=== PATIENT | female | born 1925 | race Caucasian/White ===

== ENCOUNTER → 2016-04-02 | Outpatient (CLI) | payer MEDICARE, BC ==
--- NOTE | 2016-04-02 11:32 | MM ---
Reason for exam: history of breast cancer, mastectomy. Last mammogram was performed 1 year ago. History: Patient is postmenopausal and has history of breast cancer at age 87. Family history of breast cancer in mother at age 70 and breast cancer in aunt. Malignant US LT VAD breast biopsy of the left breast, March 25, 2013. Cancelled Left Mammotome of the left breast, August 07, 2006. 2 excisional biopsies of the left breast. 2 excisional biopsies of the right breast. Took hormonal contraceptives for 6 months beginning at age 44. Taking antineoplastic beginning at age 87. Physical Findings: Nurse did not find any significant physical abnormalities on exam. MG 3D Diag Mammo W/Cad RT CC and MLO view(s) were taken of the right breast. Prior study comparison: March 29, 2015, right breast MG 3d diag mammo w/cad RT. March 18, 2014, right breast MG diagnostic mammo RT w CAD. March 17, 2013, CAD bilateral diagnostic mammogram. August 13, 2011, bilateral digital screening mammo w/CAD. August 05, 2009, bilateral digital screening mammogram. The breast tissue is heterogeneously dense. This may lower the sensitivity of mammography. Benign secretory calcifications and oil cysts. No significant new findings when compared with previous films. These results were verbally communicated with the patient and result sheet given to the patient on 04/02/16. ASSESSMENT: Negative, BI-RAD 1 RECOMMENDATION: Follow-up diagnostic mammogram of the right breast in 1 year.
== END | disposition home or self-care (01) ==
LOC: RADMAMWWP 10:01
PROVIDERS: ATTEND Surgery
DX: Z08 Encounter for follow-up examination after completed treatment for malignant neoplasm (principal); Z85.3 Personal history of malignant neoplasm of breast
CPT/HCPCS: G0206; G0279